=== PATIENT | male | born 2000 | race African-American/Black ===

== ENCOUNTER 2023-06-27 12:51 | Emergency (ER) | payer SELFPAY ==
[~2023-06-27] VITALS: Ht 177.8 cm; Wt 111.1 kg
[~2023-06-27 12:51] MED LIST: ALBU0.5N2
[2023-06-27 13:26] VITALS: BP 124/81; PULSE 107; RESP 18; O2SAT 95
== END 2023-06-28 00:35 | disposition left against medical advice (07) ==
LOC: ER 12:51
DX: K92.0 Hematemesis (principal); Z53.21 Procedure and treatment not carried out due to patient leaving prior to being seen by health care provider